=== PATIENT | male | born 1975 | race Caucasian/White ===

== ENCOUNTER 2017-07-20 02:42 | Emergency (ER) | payer OTHER | END 2017-07-20 07:50 | disposition home or self-care (01) | LOC: FTE 02:42 | DX: J11.1 Influenza due to unidentified influenza virus with other respiratory manifestations (principal); I10 Essential (primary) hypertension; Z87.891 Personal history of nicotine dependence | CPT/HCPCS: 99283; Z7502 ==

== ENCOUNTER 2017-11-17 13:02 | Emergency (ER) | payer OTHER ==
[2017-11-17] MEDS: LEVALBUTEROL (NEB) 0.63 MG/3 ML AMP HHN (14:31)
[2017-11-17] MEDS: LORAZEPAM 0.5 MG TAB PO (14:46)
== END 2017-11-17 16:02 | disposition home or self-care (01) ==
LOC: FTE 13:02
DX: S20.211A Contusion of right front wall of thorax, initial encounter (principal); S29.9XXA Unspecified injury of thorax, initial encounter; I10 Essential (primary) hypertension; R07.81 Pleurodynia; W18.30XA Fall on same level, unspecified, initial encounter; Y92.9 Unspecified place or not applicable; Z87.891 Personal history of nicotine dependence
CPT/HCPCS: 71046; 94664; 99284-25

== ENCOUNTER 2018-06-21 20:05 | Emergency (ER) | payer OTHER | END 2018-06-21 23:31 | disposition home or self-care (01) | LOC: FTE 20:05 | DX: H10.12 Acute atopic conjunctivitis, left eye (principal) | CPT/HCPCS: 99283; Z7502 ==

== ENCOUNTER 2018-06-26 21:36 | Emergency (ER) | payer SELFPAY, OTHER | END 2018-06-26 23:04 | disposition left against medical advice (07) | LOC: FTE 21:36 | DX: Z53.21 Procedure and treatment not carried out due to patient leaving prior to being seen by health care provider (principal) | CPT/HCPCS: 93005 ==

== ENCOUNTER 2019-01-06 05:41 | Emergency (ER) | payer SELFPAY, OTHER | END 2019-01-06 05:53 | disposition left against medical advice (07) | LOC: E/R 05:41 → FTE 05:53 | DX: Z53.21 Procedure and treatment not carried out due to patient leaving prior to being seen by health care provider (principal) | CPT/HCPCS: 93005 ==